=== PATIENT | male | born 1955 | race Caucasian/White ===

== ENCOUNTER 2017-10-31 17:42 | Emergency (ER) | payer SELFPAY ==
[2017-10-31 18:34] LABS: #Basophils 0.1 thou/uL (0.0-0.2); #Eosinphils 0.1 thou/uL (0.0-0.7); #Lymphocytes 2.4 thou/uL (1.20-3.40); #Monocytes 0.9 thou/uL (0.11-0.59); #Neutrophils 4.4 thou/uL (1.40-6.50); %Eosinophils 1.7 % (0.0-10.0); %Lymphocytes 30.6 % (21.0-51.0); %Monocytes 11.2 % (0.0-10.0); Hematocrit 52.5 % (42.0-52.0); Mean Platelet Volume 7.1 fL (7.4-10.4); Red Blood Cell (RBC) Count 5.85 mill/uL (4.70-6.10); White Blood Cell (WBC) Count 7.9 thou/uL (4.8-10.8)
[2017-10-31 18:57] LABS: ALT (SGPT) 22 U/L (8-55); AST (SGOT) 21 U/L (5-34); Alkaline Phosphatase 78 U/L (40-150); Anion Gap 10 mmol/L (10-20); BUN (Urea Nitrogen) 9 mg/dL (8.4-25.7); Bilirubin, Total 0.6 mg/dL (0.2-1.2); Calc. Creatinine Clearance 0 mL/min (70-130); Calcium 9.9 mg/dL (7.8-10.44); Carbon Dioxide 29 mmol/L (23-31); Chloride 96 mmol/L (98-107); Estimated GFR-MDRD 72; Globulin 3.3 g/dL (2.4-3.5); Lipase 29 U/L (8-78); Protein, Total 7.5 g/dL (5.8-8.1)
--- NOTE | 2017-10-31 19:16 | ULT ---
RIGHT UPPER QUADRANT ULTRASOUND 10/31/17 COMPARISON: None. HISTORY: Pain within the upper abdomen. TECHNIQUE: Multiplanar yee scale sonographic imaging of the right upper quadrant obtained. FINDINGS: The electrocardiogram technician reports a negative June's sign. The pancreas is not well visualized secondary to ov erlying bowel gas. The hepatic parenchyma is diffusely echogenic and heterogeneous, suggesting hepati c steatosis. Right kidney measures 12.3 cm in craniocaudal dimension and demonstrates no evidence for stone, hydro nephrosis or mass. The common bile duct measures in the 5 mm range, within normal limits. No gallbladder wall thickening or pericholecystic fluid. No gallstones are noted. IMPRESSION: No evidence for cholelithiasis, cholecystitis, or biliary dilatation. POS: KAY
[2017-10-31] MEDS ORDERED: Simethicone Chewable 80 MG TAB PO SCH (20:00)
[2017-10-31 20:41] LABS: Bilirubin Negative (Negative); Blood, Urine Negative (Negative); Glucose, Urine (Dipstick) >=1000 mg/dL (Negative); Ketone, Urine Negative (Negative); Nitrite Negative (Negative); Protein, Urine (Dipstick) 100 mg/dL (Neg-Trace); Urobilinogen 0.2 mg/dL (0.2-1.0)
[2017-10-31 20:43] LABS: Bacteria/HPF None Seen HPF (None Seen); Hyaline Casts/LPF 0-3 HYALINE CAST LPF (0-3 Hyaline); RBC/HPF None Seen HPF (0-3); Squamous Epithelial 0-3 HPF (0-3); WBC/HPF 0-3 HPF (0-3)
== END 2017-10-31 21:38 | disposition home or self-care (01) ==
LOC: ERS 17:42
DX: K21.9 Gastro-esophageal reflux disease without esophagitis (principal); R18.8 Other ascites; R14.0 Abdominal distension (gaseous); E11.9 Type 2 diabetes mellitus without complications; I10 Essential (primary) hypertension
CPT/HCPCS: 76705; 80053; 81003; 81015; 82010; 83690; 85025; 93005; 96360; 96361

== ENCOUNTER 2021-05-10 07:45 | Inpatient (IN) | payer MEDICARE, OTHER ==
[2021-05-10 09:42] LABS: #Basophils 0.1 10x3/uL (0.0-0.2); #Eosinphils 0.2 10x3/uL (0.0-0.5); #Monocytes 0.8 10x3/uL (0.0-1.1); #Neutrophils 5.5 10x3/uL (1.5-8.4); %Basophils 0.7 % (0.0-2.0); %Eosinophils 2.2 % (0.0-6.0); %Monocytes 9.4 % (0.0-10.0); %Neutrophils 68.5 % (40.0-75.0); Hemoglobin 15.9 g/dL (13.5-17.5); Mean Corpuscular HGB CONC 34.7 g/dL (32.0-36.0); Mean Corpuscular Hemoglobin 29.6 pg (27.0-33.0); Mean Corpuscular Volume 85.1 fl (81.2-95.1); Mean Platelet Volume 9.9 fl (7.4-10.4); Platelet Count 250 10x3/uL (150-450); RBC Distribution Width 12.3 % (11.5-14.5); Red Blood Cell (RBC) Count 5.38 10x6/uL (4.32-5.72); White Blood Cell (WBC) Count 8.1 10x3/uL (3.5-10.5)
[2021-05-10 10:13] LABS: Anion Gap 16 mmol/L (10-20); BUN (Urea Nitrogen) 22 mg/dL (8.4-25.7); Calc. Creatinine Clearance 0 mL/min (70-130); Calcium 10.3 mg/dL (7.8-10.44); Carbon Dioxide 27 mmol/L (23-31); Chloride 97 mmol/L (98-107); Glucose 450 mg/dL (80-115); Sodium 135 mmol/L (136-145)
[2021-05-10 17:01] LABS: SARS-CoV-2 PCR by NAA Not Detected (NotDetected)
[2021-05-15] MEDS ORDERED: Dexamethasone 4 mg/ml Vial ONE (08:25)
[2021-05-15] MEDS ORDERED: Bupivacaine PF 0.5% 30 ML VIAL ONE (08:25)
[2021-05-15] MEDS ORDERED: EPINEPHrine 1 MG/ML AMP ONE (08:25)
[2021-05-15] MEDS ORDERED: Albumin 5% 500 ML ONE (08:25)
[2021-05-15] MEDS ORDERED: Midazolam HCl 2 mg/2 ml Vial ONE (09:58)
[2021-05-15] MEDS ORDERED: Midazolam HCl 5 mg/5 ml Vial ONE (09:58)
[2021-05-15] MEDS ORDERED: Fentanyl 250 MCG/5 ML VIAL ONE (09:58)
[2021-05-15] MEDS ORDERED: Lidocaine 2% PF 100 mg/5 ml Syringe ONE (10:08)
[2021-05-15] MEDS ORDERED: DOPamine 400 MG/10 ML VIAL ONE (10:08)
[2021-05-15] MEDS ORDERED: PHENYLEPHRINE-NS 100 MCG/ML 10 ML SYRINGE ONE ×2 (10:08→11:46)
[2021-05-15] MEDS ORDERED: Protamine Sulfate 250 MG/25 ML VIAL ONE (10:08)
[2021-05-15] MEDS ORDERED: Papaverine 60 MG/2 ML VIAL ONE (10:08)
[2021-05-15] MEDS ORDERED: Heparin 30,000 units/30 ml VIAL ONE (10:08)
[2021-05-15] MEDS ORDERED: Magnesium Sulfate 1 GM/2 ML VIAL ONE (10:08)
[2021-05-15] MEDS ORDERED: Aminocaproic Acid 5 GM/20 ML VIAL ONE (10:08)
[2021-05-15] MEDS ORDERED: Thrombin 5000 UNITS/5 ML VIAL ONE (10:08)
[2021-05-15] MEDS ORDERED: Mannitol 12.5 GM/50 ML ONE (10:08)
[2021-05-15] MEDS ORDERED: Heparin 5,000 UNITS/ML VIAL ONE (10:08)
[2021-05-15] MEDS ORDERED: Potassium Chloride 60 MEQ/30 ML VIAL ONE (10:08)
[2021-05-15] MEDS ORDERED: Vecuronium 10 MG VIAL ONE (10:08)
[2021-05-15] MEDS ORDERED: Sodium Bicarb 50 MEQ/50 ML Abboject 8.4% SYRINGE ONE (10:08)
[2021-05-15] MEDS ORDERED: Cardioplegic Soln 1,000 ML BAG ONE (10:08)
[2021-05-15] MEDS ORDERED: Calcium Chloride 1 GM/10 ML Abboject SYRINGE ONE (10:08)
[2021-05-15] MEDS ORDERED: ePHEDrine Sulfate 50 MG/10 ML VIAL ONE (10:08)
[2021-05-15] MEDS ORDERED: Insulin Regular 300 UNITS/3 ML VIAL ONE (10:46)
[2021-05-15 14:33] LABS: Actual Bicarbonate (HCO3a) 25.7 mEq/L (22-28); Base Excess (BEa) -0.6 mEq/L (-2.0 to +3.0); CO2 Tension 49.2 mmHg (35.0-45.0); Calcium, Ionized (arterial) 1.21 mmol/L (1.12-1.30); Carboxyhemoglobin (COHb) 0.7 gm% (0.0-3.0); Hemoglobin (Hb) 12.9 g/dL (14.0-18.0); O2 Tension (PaO2), arterial 118.1 mmHg (> 80.0); Potassium - ABG Lab 2.74 mmol/L (3.70-5.30); pH, Arterial 7.34 (7.35-7.45)
[2021-05-15 14:34] LABS: Puncture Site Arterial Line
[2021-05-15] MEDS ORDERED: Ondansetron PF 4 MG/2 ML Vial IVP PRN (14:36)
[2021-05-15] MEDS ORDERED: Nitroglycerin 50 MG/250 ML BOT 250 ML IVPB PRN (14:36)
[2021-05-15] MEDS ORDERED: Morphine 2 MG/ML VIAL SLOW IVP PRN (14:36)
[2021-05-15] MEDS ORDERED: Fentanyl 100 MCG/2 ML VIAL SLOW IVP PRN ×2 (14:36)
[2021-05-15] MEDS ORDERED: Bisacodyl 10 MG SUPP PR PRN (14:36)
[2021-05-15] MEDS ORDERED: hydrALAZINE 20 MG/ML VIAL SLOW IVP PRN (14:36)
[2021-05-15] MEDS ORDERED: niCARdipine 25 MG in Sodium Chloride 0.9% 250 ML 240 ML IVPB PRN (14:36)
[2021-05-15] MEDS ORDERED: Hetastarch 6% 500 ML 500 ML IVPB PRN (14:36)
[2021-05-15] MEDS ORDERED: Mag-Al 1200 mg/1200 mg/30 ML UDCUP PO PRN (14:36)
[2021-05-15] MEDS ORDERED: traMADol HCl 50 MG TAB PO PRN (14:36)
[2021-05-15] MEDS ORDERED: Bisacodyl 5 MG TAB PO PRN (14:36)
[2021-05-15] MEDS ORDERED: Magnesium 2 GM/50 ML 2 GM in Premix Bag 1 BAG IVPB SCH (14:36)
[2021-05-15] MEDS ORDERED: Promethazine HCl 25 MG/ML VIAL IM PRN (14:36)
[2021-05-15] MEDS ORDERED: DOPamine 400 MG/D5W 250 ML 250 ML IVPB PRN (14:36)
[2021-05-15] MEDS ORDERED: Post-Op Insulin Drip Protocol IVPB ONE (14:36)
[2021-05-15] MEDS ORDERED: Guaifenesin DM 100-10/5 ML UDCUP PO PRN (14:36)
[2021-05-15] MEDS ORDERED: D5 1/2 NS w/20 mEq KCL 1,000 ML IV SCH (14:36)
[2021-05-15] MEDS ORDERED: Phenylephrine 40 MG/NS 250 ML 40 MG in Premix Bag 1 BAG IVPB PRN (14:42)
[2021-05-15] MEDS ORDERED: Dextrose 5% in Water 1,000 ML IV PRN (14:45)
[2021-05-15] MEDS ORDERED: Dextrose 50% Abboject 50 ML SYRINGE SLOW IVP PRN (14:45)
[2021-05-15] MEDS ORDERED: HUMULIN R 100 UNITS in Sodium Chloride 0.9% 100 ML IVPB SCH (14:45)
[2021-05-15] MEDS ORDERED: Insulin Regular 300 UNITS/3 ML VIAL SC PRN (14:45)
[2021-05-15 14:51] LABS: #Basophils 0.1 thou/uL (0.0-0.2); #Eosinphils 0.3 thou/uL (0.0-0.7); #Lymphocytes 2.8 thou/uL (1.20-3.40); #Monocytes 1.3 thou/uL (0.11-0.59); #Neutrophils 12.2 thou/uL (1.40-6.50); %Basophils 0.3 % (0.0-1.0); %Eosinophils 1.7 % (0.0-10.0); %Lymphocytes 16.5 % (21.0-51.0); %Monocytes 8.1 % (0.0-10.0); %Neutrophils 73.3 % (42.0-75.0); Hemoglobin 12.8 g/dL (14.0-18.0); Mean Corpuscular HGB CONC 35.4 g/dL (32.0-36.0); Mean Corpuscular Hemoglobin 31.1 pg (27.0-31.0); Mean Corpuscular Volume 87.9 fL (78.0-98.0); Mean Platelet Volume 7.2 fL (7.4-10.4); Platelet Count 196 thou/uL (130-400); RBC Distribution Width 11.9 % (11.5-14.5); Red Blood Cell (RBC) Count 4.12 mill/uL (4.70-6.10); White Blood Cell (WBC) Count 16.6 thou/uL (4.8-10.8)
[2021-05-15 15:03] LABS: INR-International Normal Ratio 1.3; PTT 26.6 sec (22.9-36.1); Prothrombin Time 15.8 sec (12.0-14.7)
[2021-05-15 15:10] LABS: Anion Gap 12 mmol/L (10-20); BUN (Urea Nitrogen) 14 mg/dL (8.4-25.7); Calc. Creatinine Clearance 103 mL/min (70-130); Calcium 9.1 mg/dL (7.8-10.44); Carbon Dioxide 25 mmol/L (23-31); Chloride 103 mmol/L (98-107); Glucose 178 mg/dL (80-115); Sodium 137 mmol/L (136-145)
[2021-05-15 15:25] LABS: Potassium 2.8 mmol/L (3.5-5.1)
[2021-05-15] MEDS: Potassium Chloride 20 MEQ/100 ML PREMIX BAG IVPB PRN ×2 (15:37→21:10)
[2021-05-15 17:15] LABS: Actual Bicarbonate (HCO3a) 22.7 mEq/L (22-28); Base Excess (BEa) -0.1 mEq/L (-2.0 to +3.0); CO2 Tension 31.8 mmHg (35.0-45.0); Calcium, Ionized (arterial) 1.18 mmol/L (1.12-1.30); Carboxyhemoglobin (COHb) 0.9 gm% (0.0-3.0); Hemoglobin (Hb) 13.7 g/dL (14.0-18.0); O2 Tension (PaO2), arterial 126.1 mmHg (> 80.0); Potassium - ABG Lab 3.38 mmol/L (3.70-5.30); pH, Arterial 7.47 (7.35-7.45)
[2021-05-15 17:16] LABS: Puncture Site Arterial Line
[2021-05-15] MEDS: Ketorolac Tromethamine 30 MG/ML VIAL IVP SCH (17:31)
[2021-05-15] MEDS: CEFAZOLIN 2 GM in Premix Bag 1 BAG IVPB SCH (17:32)
[2021-05-15 20:14] LABS: Hemoglobin 13.1 g/dL (14.0-18.0)
[2021-05-15 20:25] LABS: Potassium 3.3 mmol/L (3.5-5.1)
[2021-05-15] MEDS ORDERED: Famotidine/PF 20 mg/2ml Vial SLOW IVP SCH (21:00)
[2021-05-16] MEDS: Ketorolac Tromethamine 30 MG/ML VIAL IVP SCH ×5 (00:31→23:54)
[2021-05-16] MEDS: CEFAZOLIN 2 GM in Premix Bag 1 BAG IVPB SCH ×2 (01:03→09:29)
[2021-05-16] MEDS: traMADol HCl 50 MG TAB PO PRN (04:08)
[2021-05-16 04:40] LABS: #Lymphocytes 1.2 thou/uL (1.20-3.40); #Monocytes 1.4 thou/uL (0.11-0.59); #Neutrophils 12.9 thou/uL (1.40-6.50); %Basophils 0.1 % (0.0-1.0); %Eosinophils 0.1 % (0.0-10.0); %Monocytes 8.7 % (0.0-10.0); %Neutrophils 83.2 % (42.0-75.0); Hemoglobin 13.5 g/dL (14.0-18.0); Mean Corpuscular HGB CONC 35.4 g/dL (32.0-36.0); Mean Corpuscular Hemoglobin 31.2 pg (27.0-31.0); Mean Corpuscular Volume 88.2 fL (78.0-98.0); Mean Platelet Volume 7.5 fL (7.4-10.4); Platelet Count 217 thou/uL (130-400); RBC Distribution Width 11.9 % (11.5-14.5); Red Blood Cell (RBC) Count 4.33 mill/uL (4.70-6.10); White Blood Cell (WBC) Count 15.5 thou/uL (4.8-10.8)
[2021-05-16 05:02] LABS: Anion Gap 14 mmol/L (10-20); BUN (Urea Nitrogen) 16 mg/dL (8.4-25.7); Calc. Creatinine Clearance 115 mL/min (70-130); Calcium 8.6 mg/dL (7.8-10.44); Carbon Dioxide 21 mmol/L (23-31); Chloride 104 mmol/L (98-107); Glucose 127 mg/dL (80-115); Potassium 3.7 mmol/L (3.5-5.1); Sodium 135 mmol/L (136-145)
[2021-05-16] MEDS: Potassium Chloride 20 MEQ/100 ML PREMIX BAG IVPB PRN (06:15)
[2021-05-16] MEDS ORDERED: Bisacodyl 5 MG TAB PO PRN (07:16)
[2021-05-16] MEDS ORDERED: diphenhydrAMINE 25 MG CAP PO PRN (07:16)
[2021-05-16] MEDS ORDERED: Nitroglycerin 0.4 MG TAB (25 Tab Bottle) SL PRN (07:16)
[2021-05-16] MEDS ORDERED: Milk Of Magnesia 30 ML UDCUP PO PRN (07:16)
[2021-05-16] MEDS ORDERED: Mag-Al 1200 mg/1200 mg/30 ML UDCUP PO PRN (07:16)
[2021-05-16] MEDS ORDERED: Guaifenesin DM 100-10/5 ML UDCUP PO PRN (07:16)
[2021-05-16] MEDS ORDERED: Mineral Oil ENEMA PR PRN (07:16)
[2021-05-16] MEDS ORDERED: Bisacodyl 10 MG SUPP PR PRN (07:16)
[2021-05-16] MEDS ORDERED: Atorvastatin Calcium 20 MG TAB PO SCH (09:00)
[2021-05-16] MEDS ORDERED: Lantus 1000 UNITS/10 ML VIAL SC SCH (09:15)
[2021-05-16] MEDS: Aspirin 325 MG TAB PO SCH (09:24)
[2021-05-16] MEDS: glipiZIDE 5 MG TAB PO SCH (09:24)
[2021-05-16] MEDS: Famotidine 20 MG TAB PO SCH ×2 (09:24→20:14)
[2021-05-16] MEDS: Metoprolol Tartrate 25 MG TAB PO SCH ×2 (09:25→20:14)
[2021-05-16] MEDS: Magnesium 2 GM/50 ML 2 GM in Premix Bag 1 BAG IVPB SCH (09:27)
[2021-05-16] MEDS: Acetaminophen 325 MG TAB PO PRN (09:27)
[2021-05-16 11:15] LABS: Actual Bicarbonate (HCO3a) 24.4 mEq/L (22-28); CO2 Tension 51.3 mmHg (35.0-45.0); O2 Tension (PaO2), arterial 470.2 mmHg (> 80.0)
[2021-05-16 11:15] LABS: Actual Bicarbonate (HCO3a) 24.7 mEq/L (22-28); Analyzer IN Cardio OR; CO2 Tension 45.1 mmHg (35.0-45.0); Calcium, Ionized (arterial) 1.17 mmol/L (1.12-1.30); Carboxyhemoglobin (COHb) 1.2 gm% (0.0-3.0); Hemoglobin (Hb) 15.2 g/dL (14.0-18.0); O2 Tension (PaO2), arterial 320.5 mmHg (> 80.0); Potassium - ABG Lab 3.67 mmol/L (3.70-5.30); pH, Arterial 7.36 (7.35-7.45)
[2021-05-16 11:16] LABS: Actual Bicarbonate (HCO3a) 31.1 mEq/L (22-28); Analyzer IN Cardio OR; Base Excess (BEa) 5.7 mEq/L (-2.0 to +3.0); CO2 Tension 49.8 mmHg (35.0-45.0); Calcium, Ionized (arterial) 0.88 mmol/L (1.12-1.30); Carboxyhemoglobin (COHb) 0.3 gm% (0.0-3.0); Hemoglobin (Hb) 10.7 g/dL (14.0-18.0); O2 Tension (PaO2), arterial 223.2 mmHg (> 80.0); Potassium - ABG Lab 3.24 mmol/L (3.70-5.30); pH, Arterial 7.41 (7.35-7.45)
[2021-05-16 11:16] LABS: Actual Bicarbonate (HCO3a) 23.9 mEq/L (22-28); Analyzer IN Cardio OR; Base Excess (BEa) -1.4 mEq/L (-2.0 to +3.0); CO2 Tension 42.4 mmHg (35.0-45.0); Calcium, Ionized (arterial) 1.21 mmol/L (1.12-1.30); Carboxyhemoglobin (COHb) 0.4 gm% (0.0-3.0); Hemoglobin (Hb) 11.1 g/dL (14.0-18.0); O2 Tension (PaO2), arterial 303.2 mmHg (> 80.0); Potassium - ABG Lab 3.41 mmol/L (3.70-5.30); pH, Arterial 7.37 (7.35-7.45)
[2021-05-16 11:16] LABS: Analyzer IN Cardio OR; Base Excess (BEa) -2.7 mEq/L (-2.0 to +3.0); Calcium, Ionized (arterial) 1.44 mmol/L (1.12-1.30); Carboxyhemoglobin (COHb) 0.5 gm% (0.0-3.0); Hemoglobin (Hb) 14.5 g/dL (14.0-18.0); Potassium - ABG Lab 3.09 mmol/L (3.70-5.30)
[2021-05-16 11:17] LABS: Actual Bicarbonate (HCO3a) 24.5 mEq/L (22-28); Analyzer IN Cardio OR; Base Excess (BEa) -1.3 mEq/L (-2.0 to +3.0); CO2 Tension 44.9 mmHg (35.0-45.0); Calcium, Ionized (arterial) 1.23 mmol/L (1.12-1.30); Carboxyhemoglobin (COHb) 0.8 gm% (0.0-3.0); Hemoglobin (Hb) 12.5 g/dL (14.0-18.0); Potassium - ABG Lab 2.77 mmol/L (3.70-5.30); pH, Arterial 7.35 (7.35-7.45)
[2021-05-16 11:17] LABS: Puncture Site Arterial Line
[2021-05-16 11:17] LABS: Actual Bicarbonate (HCO3a) 24.9 mEq/L (22-28); Analyzer IN Cardio OR; Base Excess (BEa) -0.2 mEq/L (-2.0 to +3.0); CO2 Tension 42.6 mmHg (35.0-45.0); Calcium, Ionized (arterial) 1.26 mmol/L (1.12-1.30); Carboxyhemoglobin (COHb) 0.3 gm% (0.0-3.0); Hemoglobin (Hb) 11.1 g/dL (14.0-18.0); O2 Tension (PaO2), arterial 369.4 mmHg (> 80.0); Potassium - ABG Lab 3.13 mmol/L (3.70-5.30); pH, Arterial 7.39 (7.35-7.45)
[2021-05-16 11:18] LABS: Puncture Site Arterial Line
[2021-05-16 11:18] LABS: Puncture Site Arterial Line
[2021-05-16 11:18] LABS: Puncture Site Arterial Line
[2021-05-16 11:19] LABS: Puncture Site Arterial Line
[2021-05-16 11:19] LABS: Puncture Site Arterial Line
[2021-05-16] MEDS: Insulin Regular 300 UNITS/3 ML VIAL SC PRN ×3 (12:22→21:19)
[2021-05-16] MEDS: Atorvastatin Calcium 20 MG TAB PO SCH (20:14)
[2021-05-17] MEDS: Acetaminophen 325 MG TAB PO PRN (00:22)
[2021-05-17] MEDS: Zolpidem Tartrate 5 MG TAB PO PRN ×2 (00:28→21:00)
[2021-05-17] MEDS: Ketorolac Tromethamine 30 MG/ML VIAL IVP SCH ×4 (05:43→23:16)
[2021-05-17] MEDS: Insulin Regular 300 UNITS/3 ML VIAL SC PRN ×3 (06:02→17:48)
[2021-05-17] MEDS: Magnesium 2 GM/50 ML 2 GM in Premix Bag 1 BAG IVPB SCH (07:46)
[2021-05-17] MEDS: Aspirin 325 MG TAB PO SCH (07:46)
[2021-05-17] MEDS: Furosemide 40 MG TAB PO SCH ×2 (07:46→14:56)
[2021-05-17] MEDS: Potassium Chloride 10 MEQ TAB PO SCH ×2 (07:46→17:49)
[2021-05-17] MEDS: glipiZIDE 5 MG TAB PO SCH (07:46)
[2021-05-17] MEDS: Famotidine 20 MG TAB PO SCH ×2 (07:47→21:00)
[2021-05-17] MEDS: Metoprolol Tartrate 25 MG TAB PO SCH ×2 (07:47→21:17)
[2021-05-17] MEDS: traMADol HCl 50 MG TAB PO PRN (21:00)
[2021-05-17] MEDS: Atorvastatin Calcium 20 MG TAB PO SCH (21:00)
[2021-05-18] MEDS: Ketorolac Tromethamine 30 MG/ML VIAL IVP SCH (04:40)
[2021-05-18] MEDS: Insulin Regular 300 UNITS/3 ML VIAL SC PRN (06:18)
[2021-05-18 08:01] VITALS: BP 155/72; TEMP 98.2
[2021-05-18] MEDS: Potassium Chloride 10 MEQ TAB PO SCH (08:02)
[2021-05-18] MEDS: Aspirin 325 MG TAB PO SCH (08:02)
[2021-05-18] MEDS: Furosemide 40 MG TAB PO SCH (08:02)
[2021-05-18] MEDS: Metoprolol Tartrate 25 MG TAB PO SCH (08:02)
[2021-05-18] MEDS: glipiZIDE 5 MG TAB PO SCH (08:02)
[2021-05-18] MEDS: Famotidine 20 MG TAB PO SCH (08:02)
[2021-05-18 09:12] VITALS: BMI 31.3
== END 2021-05-18 09:45 | disposition home or self-care (01) | DRG 236 ==
LOC: EDSTATUS 05-15 07:45 → SURG A 05-15 07:56 → CCU 05-15 11:58 → 2NO 05-17 00:16
PROVIDERS: ADMIT Thoracic Surgery (Cardiothoracic Vascular Surgery); ATTEND Thoracic Surgery (Cardiothoracic Vascular Surgery)
PROC: 021209W Bypass Coronary Artery, Three Arteries from Aorta with Autologous Venous Tissue, Open Approach (ICD-10-PCS; principal; 2021-05-15)
PROC: 02100Z9 Bypass Coronary Artery, One Artery from Left Internal Mammary, Open Approach (ICD-10-PCS; 2021-05-15)
PROC: 06BQ4ZZ Excision of Left Saphenous Vein, Percutaneous Endoscopic Approach (ICD-10-PCS; 2021-05-15)
PROC: 5A1221Z Performance of Cardiac Output, Continuous (ICD-10-PCS; 2021-05-15)
DX: I25.10 Atherosclerotic heart disease of native coronary artery without angina pectoris (principal); I10 Essential (primary) hypertension; E78.2 Mixed hyperlipidemia; E11.9 Type 2 diabetes mellitus without complications; Z20.822 Contact with and (suspected) exposure to COVID-19; R31.9 Hematuria, unspecified; Z79.82 Long term (current) use of aspirin; Z79.899 Other long term (current) drug therapy; Z98.890 Other specified postprocedural states; Z87.891 Personal history of nicotine dependence
CPT/HCPCS: 36415; 36416; 71045; 80048; 82805; 85025; 85610; 85730; 86850; 86900; 86901; 93005; 93010; 93798; 94002; 94150; 97139; J0171; J0690; J1100; J1265; J1642; J1644; J1815; J1885; J2001; J2150; J2250; J2405; J2440; J2720; J3010; J3370; J3475; J3480; J3490; P9045; S0017; S0020; S0028; U0003; U0005

== ENCOUNTER 2021-05-10 07:54 | Outpatient (CLI) | payer MEDICARE, OTHER | END 2021-05-10 07:55 | disposition home or self-care (01) | LOC: LABBT 07:54 | PROVIDERS: ATTEND Thoracic Surgery (Cardiothoracic Vascular Surgery) | DX: Z01.818 Encounter for other preprocedural examination (principal); I25.10 Atherosclerotic heart disease of native coronary artery without angina pectoris; Z20.822 Contact with and (suspected) exposure to COVID-19; R91.8 Other nonspecific abnormal finding of lung field | CPT/HCPCS: 71046; 80048; 85025; 86850; 86900; 86901; 93005; U0003; U0005; 93010 ==